=== PATIENT | male | born 1965 | race Caucasian/White ===

== ENCOUNTER → 2020-08-31 | Outpatient (CLI) | payer OTHER, MEDICAID ==
--- NOTE | 2020-08-31 11:39 | REPPI ---
INDICATION: N20.0 NEPHROLITHIASIS COMPARISON: None. TECHNIQUE: Supine views of the abdomen and pelvis. FINDINGS: Visualized bowel gas pattern is nonspecific. No obvious organomegaly. Prior lower lumbar laminectomy and posterior fixation noted. Skeletal structures demonstrate generalized age-related degenerative changes to the bilateral hips and visualized lumbar spine. No obvious nephroureterolithiasis appreciated. IMPRESSION: Nonspecific bowel gas pattern. No obvious nephroureterolithiasis appreciated. <Electronically signed by Silas Marti > 08/31/20 [id number]
== END ==
LOC: M PLAIMG 10:47
PROVIDERS: ATTEND Urology
DX: N20.0 Calculus of kidney (principal)
CPT/HCPCS: 74018; G0463

== ENCOUNTER → 2020-10-13 | Outpatient (REF) | payer MEDICARE, MEDICAID, OTHER | LOC: M SMT 17:00 | PROVIDERS: ATTEND Urology | DX: R39.198 Other difficulties with micturition (principal) ==